=== PATIENT | male | born 1940 ===

== ENCOUNTER → 2020-03-25 | Outpatient (CLI) | payer MEDICARE ==
--- NOTE | 2020-03-25 12:16 | RADIOLOGY REPORT (SQ) ---
EXAM DESCRIPTION: MRI LT UPPER JOINT WITHOUT IMAGES COMPLETED DATE/TIME: 03/25/2020 10:17 am REASON FOR STUDY: (M25.512)OT SPECIFIC JOINT DERANGEMENTS OF LEFT SHOULDER, [facility] M24.812 OTH SPECIF IC JOINT DERANGEMENTS OF LEFT SHOULDER, [place] COMPARISON: None. TECHNIQUE: Left shoulder images acquired and stored on PACS. Multiplanar imaging to include fat sens itive sequences such as T1, water sensitive sequences such as FST2/STIR, cartilage sensitive sequence s such as FSPD/gradient-echo sequences. LIMITATIONS: Patient motion artifact limits several acquisitions. FINDINGS: BONE MARROW AND CORTEX: No worrisome bone lesions or marrow replacement. No occult fractur es. JOINT OR BURSAL EFFUSION: Trace fluid is seen within the subacromial/subdeltoid bursa. No glenohumer al effusion. GLENO-HUMERAL ARTICULATION: Normal articulation. No subluxation. No cystic change. No osteophytes. M ild irregular cartilaginous thinning. ACROMION AND AC JOINT: Mild acromioclavicular arthropathy. ROTATOR CUFF AND INTERVAL: Mild supraspinatus and infraspinatus tendinopathy noting partial-thickness tear of the infraspinatus at the footplate. The subscapularis and teres minor demonstrate normal ca liber, signal, and attachment. LABRUM AND BICEPS LABRAL COMPLEX: Intact. No labral tear. Intra-articular long-head biceps tendon n ormal. Distal biceps in normal location in bicipital groove. REMAINDER OF LABRUM AND IGHL : No gross tear or paralabral cyst formation. Labral evaluation is less than optimal without joint distention. No thickening of IGHL to suggest adhesive capsulitis. PERIARTICULAR AND ADJACENT SOFT TISSUES: No masses or abnormal nodes. OTHER: No other significant finding. IMPRESSION: Examination limited by patient motion artifact. Constellation of findings consistent wi shoulder impingement syndrome. TECHNICAL DOCUMENTATION: JOB ID: [id number] 2010 [employer]- All Rights Reserved Reading location - IP/workstation name: [email or web address]
== END ==
LOC: RAD 09:30
PROVIDERS: ATTEND Physician Assistant
DX: M24.812 Other specific joint derangements of left shoulder, not elsewhere classified (principal); M25.512 Pain in left shoulder